=== PATIENT | female | born 1970 | race Two or more races ===

== ENCOUNTER 2020-11-27 07:18 | Emergency (ER) | payer OTHER ==
[~2020-11-27] VITALS: Ht 167.6 cm; Wt 56.2 kg
== END 2020-11-27 15:23 | disposition home or self-care (01) ==
LOC: ER 07:18
DX: U07.1 COVID-19 (principal)

== ENCOUNTER → 2020-12-03 | Emergency (ER) | payer OTHER ==
[~2020-12-03] VITALS: Ht 167.6 cm; Wt 56.7 kg
== END | disposition home or self-care (01) ==
LOC: ER 07:13
DX: U07.1 COVID-19 (principal)

== ENCOUNTER 2020-12-04 08:00 | Outpatient (CLI) | payer OTHER | END 2020-12-04 10:00 | disposition home or self-care (01) | LOC: ASH CLINIC 08:00 | PROVIDERS: ATTEND Emergency Medicine | DX: Z23 Encounter for immunization (principal); U07.1 COVID-19 ==